=== PATIENT | male | born 1970 | race Caucasian/White ===

== ENCOUNTER 2024-08-13 03:16 | Emergency (ER) | payer MEDICARE, SELFPAY ==
[2024-08-13 03:18] VITALS: BMI 24.1
[2024-08-13 03:27] VITALS: BP 127/95; PULSE 85; RESP 18; TEMP 36.8; O2SAT 98
--- NOTE | 2024-08-13 03:40 | PD.EDLOWEX ---
Lower Extremity Injury RME/HPI General Chief Complaint: Extremity Injury, Lower Stated Complaint: R KNEE PAIN AND SWELLING Time Seen by Provider: 08/13/24 03:37 Arrival date/time: 08/13/24 03:16 This is a case of 54-year-old male who came into the emergency room due to due to right knee pain patient states that he had a problem on his right knee for 4 years patient fell last week went to the ER x-ray was done and stated that there is no fracture patient just came here wanted some pain medication patient denies any numbness weakness or tingling sensation no other injury noted Limitations: no limitations Related Data Home Medications ?Medication ?Instructions ?Recorded ?Confirmed simvastatin 20 mg tablet 20 mg PO QDAY ##0 04/11/13 02/10/22 ibuprofen 800 mg tablet 800 mg PO Q8HR PRN PAIN #0 tabs 12/27/16 02/10/22 albuterol sulfate 90 mcg/actuation puff inhalation QDAY 02/10/22 aerosol inhaler (Ventolin HFA) baclofen 10 mg tablet 10 mg PO BID 02/10/22 02/10/22 beclomethasone dipropionate 80 inhalation 02/10/22 mcg/actuation HFA breath activated aerosol (Qvar RediHaler) clonazepam 1 mg tablet 1 mg PO QDAY PRN Anxiety 02/10/22 02/10/22 fluoxetine 10 mg capsule 10 mg PO QDAY 02/10/22 02/10/22 ipratropium 20 mcg-albuterol 100 1 puff inhalation Q6H 02/10/22 02/10/22 mcg/actuation mist for inhalation (Combivent Respimat) omeprazole 40 mg capsule,delayed 40 mg PO QDAY 02/10/22 02/10/22 release risperidone 2 mg tablet 2 mg PO QDAY 02/10/22 02/10/22 Previous Rx's ?Medication ?Instructions ?Recorded docusate sodium 100 mg capsule 100 mg PO BID #40 caps 02/11/22 (Colace) hydrocodone 5 mg-acetaminophen 325 1 tab PO Q6H PRN pain (scale score 02/11/22 mg tablet 7-10) #20 tabs ibuprofen 800 mg tablet 800 mg PO Q8H PRN pain #20 tabs 08/13/24 Allergies Allergy/AdvReac Type Severity Reaction Status Date / Time No Known Allergies Allergy Verified 08/13/24 03:22 Review of Systems Review of Systems Systems Reviewed: All systems reviewed, normal except as documented Constitutional Constitutional: Reports system reviewed and no additional complaints, except as documented ENT Ears, Nose, Mouth, and Throat: Denies neck pain Cardiovascular Cardiovascular: Reports system reviewed and no additional complaints, except as documented Gastrointestinal Gastrointestinal: Reports system reviewed and no additional complaints, except as documented Musculoskeletal Musculoskeletal: Reports system reviewed and no additional complaints, except as documented, Denies arthralgias, Denies atrophy, Denies back pain, Denies deformity, Denies joint swelling, Denies limited range of motion, Denies loss of height, Denies muscle cramps, Denies muscle weakness, Denies myalgias, Denies neck pain, Denies numbness, Denies radiating pain into limb, Denies stiffness and Denies tingling Neurologic Neurologic: Reports system reviewed and no additional complaints, except as documented, Denies numbness and Denies tingling Past Medical History Past Medical History NEUROLOGIC: Negative Neurological Disorders or Seizures CARDIAC: Negative Cardiac Disorders or Congestive Heart Failure RESPIRATORY: Positive Asthma; Negative Chronic Obstructive Pulmonary Disease (COPD) GASTROINTESTINAL: Negative Gastrointestinal Disorders GENITOURINARY: Negative Genitourinary Disorders or Renal Disease REPRODUCTIVE: Negative Fibroids MUSCULOSKELETAL: Positive Carpal Tunnel Syndrome; Negative Musculoskeletal Disorders ENDOCRINE: Negative Endocrine Disorders, Diabetes Mellitus Type 1 or Diabetes Mellitus Type 2 HEMATOLOGIC: Negative Blood Disorders PSYCHO/SOCIAL: Positive Depression OTHER HISTORY: Negative Autoimmune Disease, Blood Transfusions, Anesthesia Reactions, MRSA, VRSA, Vancomycin-Resistant Enterococci or Cancer Family History FAMILY HISTORY: Negative Family Psychiatric Problems, Family Respiratory Disorders, Family Cardiac Disorders, Family Gastrointestinal Problems, Family Cancer, Family Surgery or Family Anesthesia Reaction Social History SMOKING STATUS: Current some day smoker SUBSTANCE USE: methamphetamine ED Exam General Limitations: Present no limitations General appearance: Present alert and in no apparent distress Head Head exam: Present atraumatic Eye Eye exam: Present normal appearance, PERRL and EOMI ENT ENT exam: Present normal exam, normal oropharynx and mucous membranes moist Neck Neck exam: Present normal inspection, full ROM and trachea midline Chest Chest inspection: Present normal inspection and symmetric chest wall rise Respiratory Respiratory exam: Present normal lung sounds bilaterally Cardiovascular Cardiovascular exam: Present regular rate, normal rhythm and normal heart sounds Abdominal Exam Abdominal exam: Present soft and normal bowel sounds Extremities Exam Extremities exam: Present normal inspection and full ROM Expanded Lower Extremity Exam Knee exam: Present full ROM and tenderness (Mild tenderness noted on the right anterior knee no swelling no crepitation no deformity no prepatellar tenderness or deformity ROM intact pulses were full and equal capillary refill less than 2 seconds negative Schmidt sign no calf tenderness); Absent swelling, abrasion, laceration, ecchymosis, deformity, crepitus, dislocation, erythema, effusion, anterior drawer sign, posterior draw sign, pain with valgus, laxity with valgus, pain with varus, laxity with varus, knee extension intact or other Back Exam Back exam: Present normal inspection and full ROM Neurological Exam Neurological exam: Present alert, oriented X3, CN II-XII intact, normal gait and reflexes normal; Absent motor sensory deficit Psychiatric Psychiatric exam: Present normal affect and normal mood Skin Skin exam: Present warm, dry, intact and normal color Course Quality Measures none Orders Category Date Time Status Apply knee immobilizer NOW Care 08/13/24 03:37 Active Ibuprofen Tab [Motrin Tab] Med 08/13/24 03:37 Once 800 mg PO X1 ONE Vital Signs Vital signs: Vital Signs Temperature 98.2 F 08/13/24 03:27 Pulse Rate 85 08/13/24 03:27 Respiratory Rate 18 08/13/24 03:27 Blood Pressure 127/95 H 08/13/24 03:27 Pulse Oximetry (%) 98 08/13/24 03:27 Oxygen Delivery Method Room Air 08/13/24 03:27 Oxygen saturation 98% in room air Extremity Injury, Lower MDM Narrative MDM Narrative:: This is a case of 54-year-old male who came into the emergency room due to due to right knee pain patient states that he had a problem on his right knee for 4 years patient fell last week went to the ER x-ray was done and stated that there is no fracture patient just came here wanted some pain medication patient denies any numbness weakness or tingling sensation no other injury noted patient is awake alert oriented not in distress nontoxic looking noted mild to moderate tenderness on the right anterior knee no swelling no crepitation no deformity no peripatellar tenderness or swelling or deformity ROM intact pulses were full and equal capillary refill less than 2 seconds negative Schmidt signs no calf tenderness patient refused x-ray patient states that he had x-ray also in the past and it is normal patient only wanted pain medication patient was given Motrin here in the emergency room an [place] bandage was applied patient tolerated well neurovascular intact at this point I discussed with the patient the need to see an orthopedic surgeon for chronic knee pain for possible MRI to rule out meniscus or ligament injury for any worsening symptoms or any emergent concern he will return in the emergency room immediately or call 911 Patient was discharged with comfortable condition walking with stable gait. Patient verbalized no further complains explained diagnosis and answered patient question. Patient is comfortable with the proposed management plan including the need to follow up with his/her primary care physician and any specialist if applicable Discussed patient for any urgent condition or worsening sx, He/She needed to go to emergency room immediately or call 911. Patient acknowledge the responsibility to follow up as instructed and to monitor her/his symptoms. For any persistence of the symptoms for more than 3-5 days return precaution advised. Discussed the result of the test and was given printed discharge instruction Patient data External records reviewed:: [facility] previous records Clinical information provided by:: patient Social determinants that could affect healthcare access:: none Patient has the following chronic illnesses:: None How is presenting disease/condition affected by chronic disease/condition?: no chronic disease Evaluation data The following diagnostics were reviewed and interpreted by me:: other (specify) (None) Lab and/or radiology exams considered but not ordered:: None Interpretation Summary: None Medications / Prescriptions Medications or Prescriptions considered but not ordered:: Given Medication administrations:: Medication Administration History Ibuprofen (Ibuprofen Tab 400 Mg Tablet) 800 mg PO X1 ONE Stop: 08/13/24 03:38 Given Consultations Consultation(s) initiated? (list below): No Diagnosis Extremity Injury, Lower Differential Diagnosis: ankle fracture (Osteoarthritis) Most likely diagnosis given after review of the tests above:: Chronic knee pain Admission Indicated Admission indicated?: not indicated Explain why admission is indicated or not indicated:: Not indicated Admission Request Was there a request for admission?: No Admission Attestation Admission request attestation: Not indicated Disposition Plan Disposition Plan: Discharge Discharge Attestation Discharge Attestation: The patient and all family members were given an opportunity to ask questions and understood the discharge instructions. Discharge instructions specifically effects, indications for sooner follow up or return to the emergency department, and the expected course of current diagnosis. Patient condition: Stable Discharge Plan Plan Patient Disposition: HOME (Self Care) Patient condition on transfer: Stable Prescriptions/Referrals Prescriptions/Med Rec: New ibuprofen 800 mg tablet 800 mg PO Q8H PRN (Reason: pain) Qty: 20 0RF No Action simvastatin 20 MG tablet 20 mg PO QDAY Qty: 0 ibuprofen 800 MG tablet 800 mg PO Q8HR PRN (Reason: PAIN) Qty: 0 clonazepam 1 mg Tablet 1 mg PO QDAY PRN (Reason: Anxiety) omeprazole 40 mg Capsule,Delayed Release(Dr/Ec) 40 mg PO QDAY risperidone 2 mg Tablet 2 mg PO QDAY baclofen 10 mg Tablet 10 mg PO BID fluoxetine 10 mg Capsule 10 mg PO QDAY albuterol sulfate [Ventolin HFA] 90 mcg/actuation Hfa Aerosol Inhaler INHALATION QDAY Combivent Respimat 20-100 mcg/actuation Mist 1 puff INHALATION Q6H Qvar RediHaler 80 mcg/actuation Hfa Aerosol Breath Activated INHALATION hydrocodone-acetaminophen 5-325 mg tablet 1 tab PO Q6H MDD 4 PRN (Reason: pain (scale score 7-10)) Qty: 20 0RF docusate sodium [Colace] 100 mg capsule 100 mg PO BID Qty: 40 0RF Referrals: No Primary/Family,Physician [Primary Care Provider] - In 1 week Problem List Clinical Impression: Chronic pain of right knee Patient/Caregiver Discharge Instructions Education Materials: Knee Pain, ED RICE Additional Instructions: Follow-up with your primary care physician in 2 days for reevaluation and to be referred to Ortho for further evaluation and treatment of your chronic knee pain for possible MRI to rule out meniscus or ligament injury and to be referred to pain management doctor for pain control ice pack and warm compress as needed for pain elevate to decrease swelling keep the knee immobilizer in place until cleared by your primary care physician for any worsening symptoms or any emergent concern return to the emergency room immediately or call 911 Print Language: Nicaraguan Stand Alone Forms: Liana Award Info., Patient Portal Info Letter PA/BOILER ERECTOR Supervising Physician PA/MARAL Supervising Physician: dr camara
[2024-08-13] MEDS: IBUPROFEN TAB 400 MG TABLET 800 MG PO (05:12)
== END 2024-08-13 05:05 | disposition home or self-care (01) ==
PROVIDERS: Emergency Provider Emergency Medicine; PCP Nurse Practitioner Family
DX: M25.561 Pain in right knee (principal); G89.29 Other chronic pain
CPT/HCPCS: 99282; A9270

== ENCOUNTER 2024-08-23 22:43 | Emergency (ER) | payer MEDICARE, SELFPAY ==
[2024-08-23 22:44] VITALS: BMI 24.1
[2024-08-23 23:27] VITALS: BP 119/76; PULSE 109; RESP 20; TEMP 36.7; O2SAT 97
[2024-08-24] MEDS: KETOROLAC INJ 60 MG/2 ML VIAL IM (00:26)
--- NOTE | 2024-08-24 03:03 | EDNOTE_ITS ---
<Statement entered by Loraine Colón MD - 08/24/24 18:27> As co-signing physician, I was present and available for consult prn. I concur with the plan and care as documented by the midlevel provider. Lower Extremity Injury RME/HPI General Chief Complaint: Extremity Injury, Lower Stated Complaint: NEEDS ICE PACK AND JAY FOR RIGHT KNEE Time Seen by Provider: 08/23/24 23:55 Arrival date/time: 08/23/24 22:43 54M with history of psych and homelessness presents to ED with several weeks of R knee pain after some injury. Patient has XR scheduled for tomorrow. Patient just wants JAY wrap, ice pack, and pain meds. Limitations: no limitations Related Data Home Medications ?Medication ?Instructions ?Recorded ?Confirmed simvastatin 20 mg tablet 20 mg PO QDAY ##0 04/11/13 1 04/12/21 ibuprofen 800 mg tablet 800 mg PO Q8HR PRN PAIN #0 t abs 12/27/16 02/10/22 albuterol sulfate 90 mcg/actuation puff inhalation QDA Y 02/10/22 aerosol inhaler (Ventolin HFA) baclofen 10 mg tablet 10 mg PO BID 02/10/22 beclomethasone dipropionate 80 inhalation 02/10/22 mcg/actuation HFA breath activated aerosol (Qvar RediHaler) clonazepam 1 mg tablet 1 mg PO QDAY PRN Anxiety 02/10/22 fluoxetine 10 mg capsule 10 mg PO QDAY 02/10/2202/10 ipratropium 20 mcg-albuterol 100 1 puff inhalation Q6H 02/10/22 02/10/22 mcg/actuation mist for inhalation (Combivent Respimat) omeprazole 40 mg capsule,delayed 40 mg PO QDAY 2 02/10/22 release risperidone 2 mg tablet 2 mg PO QDAY 02/10/22 Previous Rx's ?Medication ?Instructions ?Recorded docusate sodium 100 mg capsule 100 mg PO BID #40 caps 02/11/22 (Colace) hydrocodone 5 mg-acetaminophen 325 1 tab PO Q6H PRN pa in (scale score 02/11/22 mg tablet 7-10) #20 tabs ibuprofen 800 mg tablet 800 mg PO Q8H PRN pain #20 t abs 08/13/24 Allergies Allergy/AdvReac Type Severity Reaction Status Date / Time No Known Allergies Allergy Verified 08/23/24 22:44 Review of Systems Review of Systems Systems Reviewed: All systems reviewed, normal except as documented Constitutional Constitutional: Reports system reviewed and no additional complaints, except as documented, Denies fever(s) and Denies headache(s) ENT Ears, Nose, Mouth, and Throat: Denies disequilibrium and Denies headache(s) Cardiovascular Cardiovascular: Reports system reviewed and no additional complaints, except as documented, Denies chest pain and Denies dyspnea Respiratory Respiratory: Reports system reviewed and no additional complaints, except as documented, Denies cough and Denies dyspnea Gastrointestinal Gastrointestinal: Reports system reviewed and no additional complaints, except as documented, Denies abdominal pain, Denies nausea and Denies vomiting Musculoskeletal Musculoskeletal: Reports as per HPI and Reports arthralgias Neurologic Neurologic: Reports system reviewed and no additional complaints, except as documented, Denies confusion, Denies disequilibrium and Denies headache(s) Psychiatric Psychiatric: Denies confusion Past Medical History Past Medical History NEUROLOGIC: Negative Neurological Disorders or Seizures CARDIAC: Negative Cardiac Disorders or Congestive Heart Failure RESPIRATORY: Positive Asthma; Negative Chronic Obstructive Pulmonary Disease (COPD) GASTROINTESTINAL: Negative Gastrointestinal Disorders GENITOURINARY: Negative Genitourinary Disorders or Renal Disease REPRODUCTIVE: Negative Fibroids MUSCULOSKELETAL: Positive Carpal Tunnel Syndrome; Negative Musculoskeletal Disorders ENDOCRINE: Negative Endocrine Disorders, Diabetes Mellitus Type 1 or Diabetes Mellitus Type 2 HEMATOLOGIC: Negative Blood Disorders PSYCHO/SOCIAL: Positive Depression OTHER HISTORY: Negative Autoimmune Disease, Blood Transfusions, Anesthesia Reactions, MRSA, VRSA, Vancomycin-Resistant Enterococci or Cancer Family History FAMILY HISTORY: Negative Family Psychiatric Problems, Family Respiratory Disorders, Family Cardiac Disorders, Family Gastrointestinal Problems, Family Cancer, Family Surgery or Family Anesthesia Reaction Social History SMOKING STATUS: Current some day smoker SUBSTANCE USE: methamphetamine ED Exam General Limitations: Present no limitations General appearance: Present alert and in no apparent distress Head Head exam: Present atraumatic Eye Eye exam: Present normal appearance, PERRL and EOMI ENT ENT exam: Present normal exam, normal oropharynx and mucous membranes moist Neck Neck exam: Present normal inspection, full ROM and trachea midline Chest Chest inspection: Present normal inspection and symmetric chest wall rise Respiratory Respiratory exam: Present normal lung sounds bilaterally Cardiovascular Cardiovascular exam: Present regular rate, normal rhythm and normal heart sounds Abdominal Exam Abdominal exam: Present soft and normal bowel sounds Extremities Exam Extremities exam: Present normal inspection and full ROM Back Exam Back exam: Present normal inspection and full ROM Neurological Exam Neurological exam: Present alert, oriented X3 and CN II-XII intact Psychiatric Psychiatric exam: Present normal affect and normal mood Skin Skin exam: Present warm, dry, intact and normal color Course Quality Measures none Orders Category Date Time Status jay wrap [Splint / Immobilizer] STAT Care 08/23/24 23:56 Completed Ketorolac Inj [Toradol Inj] Med 08/23/24 23:55 Discontinued 60 mg IM X1 ONE Vital Signs Vital signs: Vital Signs Temperature 98.1 F 08/23/24 23:27 Pulse Rate 109 H 08/23/24 23:27 Respiratory Rate 20 08/23/24 23:27 Blood Pressure 119/76 08/23/24 23:27 Pulse Oximetry (%) 97 08/23/24 23:27 Oxygen Delivery Method Room Air 08/23/24 23:27 O2 at 97% on RA and WNLs Extremity Injury, Lower MDM Narrative MDM Narrative:: 54M with history of psych and homelessness presents to ED with several weeks of R knee pain after some injury. Patient has XR scheduled for tomorrow. Patient just wants JAY wrap, ice pack, and pain meds. Physical exam reveals no gross R knee abnormality. Gait normal. ROM intact. Patient is afebrile, calm, and alert. Meds, pet adoption counselor, and JAY given. Patient data External records reviewed:: [facility] previous records Clinical information provided by:: patient Social determinants that could affect healthcare access:: housing Patient has the following chronic illnesses:: homelessness/drug use How is presenting disease/condition affected by chronic disease/condition?: exacerbated by Evaluation data The following diagnostics were reviewed and interpreted by me:: other (specify) (none) Lab and/or radiology exams considered but not ordered:: not ordered Interpretation Summary: n/a Medications / Prescriptions Medications or Prescriptions considered but not ordered:: ordered Medication administrations:: Medication Administration History Discontinued Medications Ketorolac Tromethamine (Ketorolac Inj 60 Mg/2 Ml Vial) 60 mg IM X1 ONE Stop: 08/23/24 23:56 Last Admin: 08/24/24 00:26 Dose: 60 mg Documented By: above Consultations Consultation(s) initiated? (list below): No Diagnosis Extremity Injury, Lower Differential Diagnosis: ankle sprain and strain, acute internal derangement of knee, fracture of femur, fracture of hip, puncture wound of foot, fracture of toe and ankle fracture Most likely diagnosis given after review of the tests above:: acute internal derangement of knee Admission Indicated Admission indicated?: not indicated Admission Request Was there a request for admission?: No Disposition Plan Disposition Plan: Discharge Discharge Attestation Discharge Attestation: The patient and all family members were given an opportunity to ask questions and understood the discharge instructions. Discharge instructions specifically effects, indications for sooner follow up or return to the emergency department, and the expected course of current diagnosis. Patient condition: Stable Discharge Plan Plan Patient Disposition: HOME (Self Care) Discharge Disposition comment: Stable Prescriptions/Referrals Prescriptions/Med Rec: No Action simvastatin 20 MG tablet 20 mg PO QDAY Qty: 0 ibuprofen 800 MG tablet 800 mg PO Q8HR PRN (Reason: PAIN) Qty: 0 ibuprofen 800 mg tablet 800 mg PO Q8H PRN (Reason: pain) Qty: 20 0RF clonazepam 1 mg Tablet 1 mg PO QDAY PRN (Reason: Anxiety) omeprazole 40 mg Capsule,Delayed Release(Dr/Ec) 40 mg PO QDAY risperidone 2 mg Tablet 2 mg PO QDAY baclofen 10 mg Tablet 10 mg PO BID fluoxetine 10 mg Capsule 10 mg PO QDAY albuterol sulfate [Ventolin HFA] 90 mcg/actuation Hfa Aerosol Inhaler INHALATION QDAY Combivent Respimat 20-100 mcg/actuation Mist 1 puff INHALATION Q6H Qvar RediHaler 80 mcg/actuation Hfa Aerosol Breath Activated INHALATION hydrocodone-acetaminophen 5-325 mg tablet 1 tab PO Q6H MDD 4 PRN (Reason: pain (scale score 7-10)) Qty: 20 0RF docusate sodium [Colace] 100 mg capsule 100 mg PO BID Qty: 40 0RF Problem List Clinical Impression: Acute internal derangement of knee Patient/Caregiver Discharge Instructions Education Materials: How Your Knee Works Additional Instructions: Please follow-up with PCP within 24-48 hours and return immediately if symptoms worsen. If problem persists, recommend outpatient PT and/or MRI follow-up. In the meantime, rest, use ice/heat, and/or compression. Print Language: Turkmen Stand Alone Forms: Patient Portal Info Letter PA/LAMINATION ASSEMBLER Supervising Physician PA/LAMINATION ASSEMBLER Supervising Physician: Dr. Colón
== END 2024-08-24 00:43 | disposition home or self-care (01) ==
LOC: SERX 08-24 00:36
PROVIDERS: Emergency Provider Emergency Medicine; PCP Obstetrics & Gynecology
DX: M23.91 Unspecified internal derangement of right knee (principal); Z59.00 Homelessness unspecified
CPT/HCPCS: 96372; 99283; J1885

== ENCOUNTER → 2024-09-19 | Outpatient (CLI) | payer MEDICARE, MEDICAID, SELFPAY ==
--- NOTE | 2024-09-19 14:15 | XR_ITS ---
Examination: Knee, right , 3 views Technique: Knee AP, lateral, oblique 3 views Date and time of exam: September 19, 2024 1419 hours INDICATIONS: Right knee pain beginning one month ago. FINDINGS: Moderate tricompartment osteoarthritis Small knee effusion No fracture IMPRESSION: Moderate tricompartment osteoarthritis
== END | disposition home or self-care (01) ==
DX: M17.11 Unilateral primary osteoarthritis, right knee (principal)
CPT/HCPCS: 73562

== ENCOUNTER 2024-09-27 20:27 | Emergency (ER) | payer MEDICARE, SELFPAY ==
[2024-09-27 20:30] VITALS: BP 103/68; PULSE 100; RESP 18; TEMP 37; O2SAT 95; BMI 24.1
--- NOTE | 2024-09-27 21:11 | PD.EDRECHK ---
ED Recheck Abnl Lab Rx-RME/HPI General Chief Complaint: General Adult/Misc Complain Stated Complaint: WEAK TIRED FEELS DEHYDRATED Time Seen by Provider: 09/27/24 21:06 Arrival date/time: 09/27/24 20:27 54M with history of psych, asthma, and homelessness presents to ED with generalized fatigue and dehydration. Patient would like some food and juice. Limitations: no limitations Related Data Home Medications ?Medication ?Instructions ?Recorded ?Confirmed simvastatin 20 mg tablet 20 mg PO QDAY ##0 04/11/13 02/10/22 ibuprofen 800 mg tablet 800 mg PO Q8HR PRN PAIN #0 tabs 12/27/16 02/10/22 albuterol sulfate 90 mcg/actuation puff inhalation QDAY 02/10/22 aerosol inhaler (Ventolin HFA) baclofen 10 mg tablet 10 mg PO BID 02/10/22 02/10/22 beclomethasone dipropionate 80 inhalation 02/10/22 mcg/actuation HFA breath activated aerosol (Qvar RediHaler) clonazepam 1 mg tablet 1 mg PO QDAY PRN Anxiety 02/10/22 02/10/22 fluoxetine 10 mg capsule 10 mg PO QDAY 02/10/22 02/10/22 ipratropium 20 mcg-albuterol 100 1 puff inhalation Q6H 02/10/22 02/10/22 mcg/actuation mist for inhalation (Combivent Respimat) omeprazole 40 mg capsule,delayed 40 mg PO QDAY 02/10/22 02/10/22 release risperidone 2 mg tablet 2 mg PO QDAY 02/10/22 02/10/22 Previous Rx's ?Medication ?Instructions ?Recorded docusate sodium 100 mg capsule 100 mg PO BID #40 caps 02/11/22 (Colace) hydrocodone 5 mg-acetaminophen 325 1 tab PO Q6H PRN pain (scale score 02/11/22 mg tablet 7-10) #20 tabs ibuprofen 800 mg tablet 800 mg PO Q8H PRN pain #20 tabs 08/13/24 Allergies Allergy/AdvReac Type Severity Reaction Status Date / Time No Known Allergies Allergy Verified 09/27/24 20:33 Review of Systems Review of Systems Systems Reviewed: All systems reviewed, normal except as documented Constitutional Constitutional: Reports system reviewed and no additional complaints, except as documented, Reports as per HPI, Reports fatigue, Denies fever(s) and Denies headache(s) ENT Ears, Nose, Mouth, and Throat: Denies disequilibrium and Denies headache(s) Cardiovascular Cardiovascular: Reports system reviewed and no additional complaints, except as documented, Denies chest pain and Denies dyspnea Respiratory Respiratory: Reports system reviewed and no additional complaints, except as documented, Denies cough and Denies dyspnea Gastrointestinal Gastrointestinal: Reports system reviewed and no additional complaints, except as documented, Denies abdominal pain, Denies nausea and Denies vomiting Neurologic Neurologic: Reports system reviewed and no additional complaints, except as documented, Denies confusion, Denies disequilibrium and Denies headache(s) Psychiatric Psychiatric: Denies confusion Endocrine Endocrine: Reports fatigue Past Medical History Past Medical History NEUROLOGIC: Negative Neurological Disorders or Seizures CARDIAC: Negative Cardiac Disorders or Congestive Heart Failure RESPIRATORY: Positive Asthma; Negative Chronic Obstructive Pulmonary Disease (COPD) GASTROINTESTINAL: Negative Gastrointestinal Disorders GENITOURINARY: Negative Genitourinary Disorders or Renal Disease REPRODUCTIVE: Negative Fibroids MUSCULOSKELETAL: Positive Carpal Tunnel Syndrome; Negative Musculoskeletal Disorders ENDOCRINE: Negative Endocrine Disorders, Diabetes Mellitus Type 1 or Diabetes Mellitus Type 2 HEMATOLOGIC: Negative Blood Disorders PSYCHO/SOCIAL: Positive Depression OTHER HISTORY: Negative Autoimmune Disease, Blood Transfusions, Anesthesia Reactions, MRSA, VRSA, Vancomycin-Resistant Enterococci or Cancer Family History FAMILY HISTORY: Negative Family Psychiatric Problems, Family Respiratory Disorders, Family Cardiac Disorders, Family Gastrointestinal Problems, Family Cancer, Family Surgery or Family Anesthesia Reaction Social History SMOKING STATUS: Current every day smoker SUBSTANCE USE: methamphetamine ED Exam General Limitations: Present no limitations General appearance: Present alert and in no apparent distress Head Head exam: Present atraumatic Eye Eye exam: Present normal appearance, PERRL and EOMI ENT ENT exam: Present normal exam, normal oropharynx and mucous membranes moist Neck Neck exam: Present normal inspection, full ROM and trachea midline Chest Chest inspection: Present normal inspection and symmetric chest wall rise Respiratory Respiratory exam: Present normal lung sounds bilaterally Cardiovascular Cardiovascular exam: Present regular rate, normal rhythm and normal heart sounds Abdominal Exam Abdominal exam: Present soft and normal bowel sounds Extremities Exam Extremities exam: Present normal inspection and full ROM Back Exam Back exam: Present normal inspection and full ROM Neurological Exam Neurological exam: Present alert, oriented X3 and CN II-XII intact Psychiatric Psychiatric exam: Present normal affect and normal mood Skin Skin exam: Present warm, dry, intact and normal color Course Quality Measures none Vital Signs Vital signs: Vital Signs Temperature 98.6 F 09/27/24 20:30 Pulse Rate 100 09/27/24 20:30 Respiratory Rate 18 09/27/24 20:30 Blood Pressure 103/68 09/27/24 20:30 Pulse Oximetry (%) 95 09/27/24 20:30 Oxygen Delivery Method Room Air 09/27/24 20:30 O2 at 95% on RA and WNLs Recheck / Abnormal Lab / Rx MDM Narrative MDM Narrative:: 54M with history of psych, asthma, and homelessness presents to ED with generalized fatigue and dehydration. Patient would like some food and juice. Physical exam reveals sleeping individual. Upon waking, patient speech is normal. Normal WOB. Normal gait. Patient is afebrile, calm, and alert. Food/juice given. Patient data External records reviewed:: [facility] previous records Clinical information provided by:: patient Social determinants that could affect healthcare access:: housing Patient has the following chronic illnesses:: psych, asthma, and homelessness How is presenting disease/condition affected by chronic disease/condition?: exacerbated by Evaluation data The following diagnostics were reviewed and interpreted by me:: other (specify) (none) Lab and/or radiology exams considered but not ordered:: not ordered Interpretation Summary: n/a Medications / Prescriptions Medications or Prescriptions considered but not ordered:: not ordered Medication administrations:: n/a Consultations Consultation(s) initiated? (list below): No Diagnosis Recheck Differential Diagnosis: encounter for medication refill, encounter for wound recheck, encounter for recheck of burn, encounter for removal of sutures, warfarin-induced coagulopathy and other (mild dehydration) Most likely diagnosis given after review of the tests above:: mild dehydration Admission Indicated Admission indicated?: not indicated Admission Request Was there a request for admission?: No Disposition Plan Disposition Plan: Discharge Discharge Attestation Discharge Attestation: The patient and all family members were given an opportunity to ask questions and understood the discharge instructions. Discharge instructions specifically effects, indications for sooner follow up or return to the emergency department, and the expected course of current diagnosis. Patient condition: Stable Discharge Plan Plan Patient Disposition: HOME (Self Care) Discharge Disposition comment: Stable Prescriptions/Referrals Prescriptions/Med Rec: No Action simvastatin 20 MG tablet 20 mg PO QDAY Qty: 0 ibuprofen 800 MG tablet 800 mg PO Q8HR PRN (Reason: PAIN) Qty: 0 ibuprofen 800 mg tablet 800 mg PO Q8H PRN (Reason: pain) Qty: 20 0RF clonazepam 1 mg Tablet 1 mg PO QDAY PRN (Reason: Anxiety) omeprazole 40 mg Capsule,Delayed Release(Dr/Ec) 40 mg PO QDAY risperidone 2 mg Tablet 2 mg PO QDAY baclofen 10 mg Tablet 10 mg PO BID fluoxetine 10 mg Capsule 10 mg PO QDAY albuterol sulfate [Ventolin HFA] 90 mcg/actuation Hfa Aerosol Inhaler INHALATION QDAY Combivent Respimat 20-100 mcg/actuation Mist 1 puff INHALATION Q6H Qvar RediHaler 80 mcg/actuation Hfa Aerosol Breath Activated INHALATION hydrocodone-acetaminophen 5-325 mg tablet 1 tab PO Q6H MDD 4 PRN (Reason: pain (scale score 7-10)) Qty: 20 0RF docusate sodium [Colace] 100 mg capsule 100 mg PO BID Qty: 40 0RF Problem List Clinical Impression: Dehydration, mild Patient/Caregiver Discharge Instructions Education Materials: ED Dehydration (Adult) Additional Instructions: Please follow-up with PCP within 24-48 hours and return immediately if symptoms worsen. Print Language: [place]i Stand Alone Forms: Patient Portal Info Letter PA/[employer] Supervising Physician LEANDRO/MARAL Supervising Physician: Dr. Barfield
== END 2024-09-27 21:23 | disposition home or self-care (01) ==
LOC: SERX 21:21
PROVIDERS: Emergency Provider Emergency Medicine; PCP Family Medicine
DX: E86.0 Dehydration (principal)
CPT/HCPCS: 99283